=== PATIENT | male | born 1995 | race African-American/Black ===

== ENCOUNTER 2022-12-20 16:37 | Emergency (ER) | payer MEDICAID, SELFPAY ==
[2022-12-20 16:39] VITALS: BP 132/68; PULSE 99; RESP 17; TEMP 36.6; O2SAT 98; BMI 27.0
--- NOTE | 2022-12-20 17:54 | US_ITS ---
INDICATION: RUQ pain, H/O Hep C EXAMINATION: Ultrasound US Abdomen RUQ (limited) TECHNIQUE: Perez-scale and color Doppler imaging was performed of the abdomen. COMPARISON: FINDINGS: LIVER: There is normal echotexture measuring 13.7 cm. No focal hepatic lesion. No intrahepatic biliary ductal dilatation. There is no free fluid. GALLBLADDER AND BILIARY TREE: No shadowing gallstone, pericholecystic fluid or gallbladder wall thickening is demonstrated. The proximal common bile duct measures 2 mm, which is within normal limits for the patient''s age. SONOGRAPHIC DRAKE''S SIGN: Negative. PANCREAS: Limited visualization of the pancreas. RIGHT KIDNEY: 10.7 x 4.5 x 2.9 cm. 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 There is no hydronephrosis. No shadowing calculus, focal lesion, or perinephric collection is demonstrated. VESSELS: Submitted longitudinal images of the intra-abdominal aorta demonstrate no gross abnormalities and are unremarkable. The IVC is patent. US/Abdomen Limited IMPRESSION: No acute sonographic abnormality is demonstrated in the abdomen. Electronically Signed: Benito Lombardi DO at 19:07 EDT Reading Location ID and State: [facility] / [place] Tel [phone], Service support ,
--- NOTE | 2022-12-20 17:54 | EDS_ITS ---
HPI History of Present Illness Chief Complaint: General Illness Informant: patient Narrative Narrative: Patient presents with 2 to 3-day history of right upper quad abdominal pain, nausea, and vomiting. He denies fever or chills. He states about 2 years ago he was diagnosed with hepatitis C when he was in [place] [facility]. They treated him with medication at that time but when he was released he never followed up. He is concerned that his pain and vomiting is secondary to his liver disease. He denies diarrhea. PFSH PFSH Medical History Anxiety Depression Hepatitis C PTSD (post-traumatic stress disorder) Home Medications ondansetron 4 mg disintegrating tablet 4 mg PO Q8H PRN PRN Nausea #10 tabs 12/20/22 [Rx Last Taken Unknown] Allergy/AdvReac Type Severity Reaction Status Date / Time No Known Allergies Allergy Verified 12/20/22 16:39 Family History Father Hypertension Surgical History no surgical history Social History household members: friend(s) current occupational status: employed Smoking Status: Current every day smoker tobacco type: cigarettes ROS ROS ED Constitutional Constitutional ED: Denies chills or fever(s) Eyes Eyes: Denies discharge from eye(s) ENT ENT ED: Denies discharge from eye(s), rhinorrhea or sore throat Cardiovascular Cardiovascular: Denies chest pain or palpitations Respiratory/Chest Respiratory/Chest: Denies cough or dyspnea Gastrointestinal Gastrointestinal: Reports abdominal pain, nausea and vomiting; Denies diarrhea Genitourinary Genitourinary ED: Denies difficulty urinating or dysuria Musculoskeletal Musculoskeletal: Denies back pain or extremity pain Integumentary Denies Abrasions or rash Neurologic Neurologic: Denies headache(s) or weakness Allergic/Immunologic Allergic/Immunologic ED: Denies lip swelling or urticaria EXAM Physical Exam Const Vital Signs: 12/20/22 16:39 12/20/22 17:46 12/20/22 19:16 Temperature 97.9 F Temperature Source Temporal Pulse Rate 99 89 Respiratory Rate 17 15 Respiratory Effort Normal Respiratory Pattern Normal Blood Pressure 132/68 H 114/51 L Blood Pressure Mean 89 72 Pulse Ox 98 97 Oxygen Delivery Method Room Air Room Air Positive well nourished and well developed General Appearance ED: well developed HEENT Reports normocephalic, head/scalp atraumatic and dry mucous membranes Mouth ED: Yes dry mucous membranes Mouth: dry mucous membranes Eyes PERRL and EOMs intact bilaterally Neck supple Chest Wall inspection of chest normal and palpation of chest normal Resp normal respiratory effort and clear to auscultation bilaterally Cardio regular rate and regular rhythm GI GI Narrative: Abdomen soft with right upper quadrant tenderness to palpation. No guarding or rebound. Palpation: soft Extremity normal to inspection Neuro oriented x3 and no sensory deficits noted Sensorium / Orientation: alert Motor Exam: strength 5/5 throughout Psych mental status grossly normal Skin no rashes or lesions noted MDM MDM MDM Narrative Medical decision making narrative: IV line established. Patient given IV fluids and Zofran. Labwork obtained to evaluate for leukocytosis, anemia, electrolyte derangement. LFTs obtained to evaluate liver disease. Right upper quadrant ultrasound obtained given his focal pain to this area and history of hepatitis. History & Record Review Discussion w/independent historian: Patient Lab Data Attestation: I reviewed the patient's lab results. Labs: Laboratory Results - last 24 hr 12/20/22 18:00 WBC 6.9 RBC 5.16 Hgb 16.2 Hct 48.3 MCV 93.6 MCH 31.4 MCHC 33.5 RDW Std Deviation 44.8 H RDW Coeff of Jack 13.0 Plt Count 230 MPV 11.4 Immature Gran % (Auto) 0.300 Neut % (Auto) 51.3 Lymph % (Auto) 32.8 Isabella % (Auto) 14.3 H Eos % (Auto) 0.9 Baso % (Auto) 0.4 Absolute Neuts (auto) 3.5 Absolute Lymphs (auto) 2.25 Nucleated RBC % 0 Sodium 139 Potassium 3.9 Chloride 108 H Carbon Dioxide 28.0 Anion Gap 3 L BUN 8 Creatinine 1.59 H Estim Creat Clear Calc 80.26 Est GFR (MDRD) Af Amer 69 Est GFR (MDRD) Non-Af 57 L BUN/Creatinine Ratio 5.0 L Glucose 82 Calcium 9.1 Total Bilirubin 0.60 Direct Bilirubin 0.21 AST 43 H ALT 91 H Alkaline Phosphatase 90 Total Protein 7.1 Albumin 3.4 Globulin 3.7 Lipase 18 Radiography Diagnostic Testing: Clinical Impression(s) from Imaging Studies Abdomen Ultrasound 12/20/22 17:54 IMPRESSION: No acute sonographic abnormality is demonstrated in the abdomen. Electronically Signed: Benito Lombardi DO at 19:07 EDT , Treatment and Re-Evaluation :: CBC was normal white count with a hemoglobin of 16.2. Normal differential. Chemistry studies reveal creatinine 1.59. I do not have any prior values avail able for comparison. LFTs reveal an AST of 43 and an ALT of 91. Alk phos is normal. Lipase is normal. Right upper quadrant ultrasound reveals no acute sonographic abnormality. On repeat evaluation patient is feeling improved after IV fluids and Zofran. He is encouraged to increase fluid intake and will be given a prescription for Zofran at home. I will refer him to both GI docs in [facility] for follow-up of his hepatitis C. Discharge Plan Triage Chief Complaint: General Illness ED Provider: Kamini Swanson Dx/Rx/DC Orders Clinical Impression: Hepatitis C, Vomiting Instructions: ED Vomiting (Adult) Prescriptions: New ondansetron 4 mg tablet,disintegrating 4 mg PO Q8H PRN PRN (Reason: Nausea) Qty: 10 0RF Primary Care Provider: Care Physician,No Primary Referrals: Ritesh Sarabia DO [Med Staff - Active Staff] - As soon as possible Wali Lauren MD [Non-Staff] - As soon as possible [facility] Doctor,Out of [Non-Staff] - Disposition Disposition: Home, Self Care
[2022-12-20 18:05] LABS: Absolute Lymphocyte Count 2.25 X10^3/uL (0.83-4.51); Absolute Neutrophil Count 3.5 X10^3/uL (2.0-7.7); Basophil# 0.03 X10^3/uL; Basophil% 0.4 % (0-1); Eosinophil# 0.06 X10^3/uL; Eosinophils% 0.9 % (0-5); Hematocrit 48.3 % (40-54); Hemoglobin 16.2 g/dL (13.0-16.5); Lymphocyte # 2.25 X10^3/ul (0.83-4.51); Lymphocyte % 32.8 % (19-41); Mean Corp Hgb Conc 33.5 g/dL (32-36); Mean Corpuscular Hgb 31.4 pg (27.0-32.0); Mean Corpuscular Volume 93.6 fL (80-94); Mean Platelet Vol. 11.4 fl (6.2-12.0); Monocyte# 0.98 X10^3/uL; Monocyte% 14.3 % (0-10); NRBC Flagged by Analyzer 0 % (0-5); Neutrophil # 3.51 X10^3/uL (2.7-7.7); Neutrophil % 51.3 % (47-70); Platelet Count 230 K/mm3 (150-450); RBC Distribution Width SD 44.8 fl (35.1-43.9); Red Blood Count 5.16 M/mm3 (4.6-6.2); White Blood Count 6.9 K/mm3 (4.4-11.0)
[2022-12-20] MEDS: 0.9% Normal Saline (1000mL) 1,000 ML 1000 ML IV (18:05)
[2022-12-20] MEDS: Ondansetron 4 MG/2 ML Vial IV (18:05)
[2022-12-20 18:24] LABS: AST(SGOT) 43 U/L (15-37); Alanine Aminotransfer ALT/SGPT 91 U/L (16-61); Albumin, Serum 3.4 g/dL (3.2-5.0); Alkaline Phosphatase 90 U/L (45-117); Anion Gap 3 (5-15); BUN 8 mg/dL (7-18); Bilirubin, Direct 0.21 mg/dL (0.00-0.30); Calcium,Total 9.1 mg/dL (8.5-10.1); Chloride 108 mmol/L (98-107); Creatinine, Serum 1.59 mg/dL (0.70-1.30); EST Glomerular Filtration Rate 57 mL/min (>60); Est Glom Filt Rate - Afr Amer 69 mL/min (>60); Estimated Creatinine Clearance 80.26 ml/min; Globulin 3.7 g/dL (2.2-4.2); Glucose 82 mg/dL (74-106); Lipase 18 U/L (13-75); Potassium 3.9 mmol/L (3.5-5.1); Protein, Total 7.1 g/dL (6.4-8.2); Sodium Level 139 mmol/L (136-145)
[2022-12-20 19:16] VITALS: BP 114/51; PULSE 89; RESP 15; O2SAT 97
== END 2022-12-20 20:25 | disposition home or self-care (01) ==
PROVIDERS: Emergency Provider Emergency Medicine; Visit Provider Emergency Medicine
DX: R11.10 Vomiting, unspecified (principal); F17.210 Nicotine dependence, cigarettes, uncomplicated; B19.20 Unspecified viral hepatitis C without hepatic coma
CPT/HCPCS: 76705; 80048; 80076; 83690; 85025; 96361; 96374; 99283; J7030; A4216; J2405

== ENCOUNTER 2025-01-12 10:15 | Observation (INO) | payer MEDICAID, SELFPAY ==
[2025-01-12] VITALS (8 sets, daily range): BP systolic 128–147; BP diastolic 74–87; PULSE 68–91; RESP 16–18; TEMP 36.5–36.6; O2SAT 95–100; BMI 29.2; BMI 28.8
--- NOTE | 2025-01-12 10:20 | ED.RN ---
[address] CONTACTS Marleny [phone], ANAHI [phone]
--- NOTE | 2025-01-12 11:13 | EDS_ITS ---
HPI History of Present Illness Chief Complaint: Substance Abuse Informant: patient Narrative Narrative: 29-year-old male presenting to the emergency room with a chief complaint of requesting detox from alcohol. Patient states that his space operations officer that is mandating that he go into residential treatment. He states that [address] advised that he needed to come to the hospital for detox from alcohol. He states that he regularly drinks at least 3 twisted teas throughout the day. He utilizes cannabis and recreational cocaine. States he last drank yesterday. States that he feels okay today. Has not been experience any diarrhea. Denies any IV drug use. No vomiting. PFSH FOR[facility]LY [facility], 1928–1983 Medical History Smoker Migraines Depression Anxiety PTSD (post-traumatic stress disorder) Hepatitis C Home Medications Medication Instructions Recorded Last Taken Type ondansetron 4 mg disintegrating 4 mg PO Q8H PRN PRN Na usea #10 tabs 12/20/22 Unknown Rx tablet Allergy/AdvReac Type Severity Reaction Status Date / Time No Known Allergies Allergy Verified 01/12/25 10:17 Family History Father Hypertension Social History household members: friend(s) current occupational status: employed Smoking Status: Current every day smoker tobacco type: cigarettes ROS ROS ED Constitutional Constitutional ED: Denies chills or weight loss Eyes Eyes: Denies change in vision or diplopia ENT ENT ED: Denies ear pain, rhinorrhea or sore throat Cardiovascular Cardiovascular: Denies chest pain, orthopnea, palpitations or racing heartbeat Respiratory/Chest Respiratory/Chest: Denies cough, dyspnea or orthopnea Gastrointestinal Gastrointestinal: Denies abdominal pain, diarrhea, nausea or vomiting Genitourinary Genitourinary ED: Denies dysuria, hematuria or urinary frequency Musculoskeletal Musculoskeletal: Denies arthralgias or myalgias Integumentary Denies abscess or rash Neurologic Neurologic: Denies headache(s) or weakness Psychiatric Psychiatric: Denies anxiety, depression, suicidal ideation or suicidal thoughts Endocrine Endocrinology: Denies polydipsia, polyphagia or polyuria Allergic/Immunologic Allergic/Immunologic ED: Denies mouth swelling, tongue swelling or urticaria EXAM Physical Exam Const Vital Signs: 01/12/25 10:17 Temperature 97.9 F Temperature Source Oral Pulse Rate 91 Respiratory Rate 16 Blood Pressure 143/74 H Blood Pressure Mean 97 Pulse Ox 98 Oxygen Delivery Method Room Air Positive well nourished and well developed General Appearance ED: well developed HEENT Reports normocephalic, head/scalp atraumatic and moist mucous membranes Eyes PERRL and EOMs intact bilaterally Neck no lymphadenopathy, supple and no JVD Resp normal respiratory effort and clear to auscultation bilaterally Cardio regular rate, regular rhythm and no murmurs GI normal to inspection, nondistended, normoactive bowel sounds and non-tender Palpation: soft Back/Spine no CVA tenderness and normal ROM Extremity normal to inspection General Extremety ED: Negative for edema General Extremity: Negative for edema Neuro oriented x3 and CN's II-XII intact bilaterally Sensorium / Orientation: alert Motor Exam: strength 5/5 throughout Psych mental status grossly normal Mood & Affect: Negative for depressed or tearful Skin no rashes or lesions noted and no wounds Discharge Plan Triage Chief Complaint: Substance Abuse ED Provider: Sidney Veloz Dx/Rx/DC Orders Prescriptions: No Action ondansetron 4 mg tablet,disintegrating 4 mg PO Q8H PRN PRN (Reason: Nausea) Qty: 10 0RF Primary Care Provider: Care Physician,No Primary Referrals: Care Physician,No Primary [Primary Care Provider, Medical] Print Language: Estonian
--- NOTE | 2025-01-12 11:13 | EX.ED.SAOD ---
HPI History of Present Illness Chief Complaint: Substance Abuse Informant: patient Narrative Narrative: 29-year-old male presenting to the emergency room with a chief complaint of requesting detox from alcohol. Patient states that his traffic control officer that is mandating that he go into residential treatment. He states that 180 advised that he needed to come to the hospital for detox from alcohol. He states that he regularly drinks at least 3 twisted teas throughout the day. He utilizes cannabis and recreational cocaine. States he last drank yesterday. States that he feels okay today. Has not been experience any diarrhea. Denies any IV drug use. No vomiting. [facility] Medical History Smoker Migraines Depression Anxiety PTSD (post-traumatic stress disorder) Hepatitis C Home Medications Medication Instructions Recorded Last Taken Type NK 01/12/25 Unknown History Allergy/AdvReac Type Severity Reaction Status Date / Time No Known Allergies Allergy Verified 01/12/25 10:17 Family History Father Hypertension Social History household members: friend(s) current occupational status: employed Smoking Status: Current every day smoker tobacco type: cigarettes ROS ROS ED Constitutional Constitutional ED: Denies chills or weight loss Eyes Eyes: Denies change in vision or diplopia ENT ENT ED: Denies ear pain, rhinorrhea or sore throat Cardiovascular Cardiovascular: Denies chest pain, orthopnea, palpitations or racing heartbeat Respiratory/Chest Respiratory/Chest: Denies cough, dyspnea or orthopnea Gastrointestinal Gastrointestinal: Denies abdominal pain, diarrhea, nausea or vomiting Genitourinary Genitourinary ED: Denies dysuria, hematuria or urinary frequency Musculoskeletal Musculoskeletal: Denies arthralgias or myalgias Integumentary Denies abscess or rash Neurologic Neurologic: Denies headache(s) or weakness Psychiatric Psychiatric: Denies anxiety, depression, suicidal ideation or suicidal thoughts Endocrine Endocrinology: Denies polydipsia, polyphagia or polyuria Allergic/Immunologic Allergic/Immunologic ED: Denies mouth swelling, tongue swelling or urticaria EXAM Physical Exam Const Vital Signs: 01/12/25 10:17 01/12/25 12:16 Temperature 97.9 F Temperature Source Oral Pulse Rate 91 Respiratory Rate 16 Blood Pressure 143/74 H 135/81 H Blood Pressure Mean 97 99 Pulse Ox 98 98 Oxygen Delivery Method Room Air Room Air Positive well nourished and well developed General Appearance ED: well developed HEENT Reports normocephalic, head/scalp atraumatic and moist mucous membranes Eyes PERRL and EOMs intact bilaterally Neck no lymphadenopathy, supple and no JVD Resp normal respiratory effort and clear to auscultation bilaterally Cardio regular rate, regular rhythm and no murmurs GI normal to inspection, nondistended, normoactive bowel sounds and non-tender Palpation: soft Back/Spine no CVA tenderness and normal ROM Extremity normal to inspection General Extremety ED: Negative for edema General Extremity: Negative for edema Neuro oriented x3 and CN's II-XII intact bilaterally Sensorium / Orientation: alert Motor Exam: strength 5/5 throughout Psych mental status grossly normal Mood & Affect: Negative for depressed or tearful Skin no rashes or lesions noted and no wounds MDM MDM MDM Narrative Medical decision making narrative: Differential diagnosis includes but not limited to polysubstance use electrolyte abnormalities liver dysfunction KOURTNEY bone marrow suppression ED addiction labs were ordered and reviewed. AST of 76 ALT of 109 toxicology is presumptive positive for cocaine and cannabinoids. Alcohol level is negative. I will speak with the hospitalist regarding admission History & Record Review Discussion w/independent historian: Patient Lab Data Attestation: I reviewed the patient's lab results. Labs: Laboratory Results - last 24 hr 01/12/25 01/12/25 11:25 11:45 WBC 6.0 RBC 5.53 Hgb 17.7 H Hct 50.6 MCV 91.5 MCH 32.0 MCHC 35.0 RDW Std Deviation 43.8 RDW Coeff of Jack 12.9 Plt Count 203 MPV 12.0 Immature Gran % (Auto) 0.200 Neut % (Auto) 50.9 Lymph % (Auto) 32.3 [place] % (Auto) 15.1 H Eos % (Auto) 0.8 Baso % (Auto) 0.7 Absolute Neuts (auto) 3.1 Absolute Lymphs (auto) 1.95 Nucleated RBC % 0 Sodium 139 Potassium 3.9 Chloride 99 Carbon Dioxide 29.5 Anion Gap 10 BUN 12 Creatinine 1.71 H Estim Creat Clear Calc 80.97 Est GFR (MDRD) Non-Af 56 L BUN/Creatinine Ratio 7.0 L Glucose 96 Calcium 9.9 Total Bilirubin 0.76 AST 76 H ALT 109 H Alkaline Phosphatase 112 Total Protein 7.3 Albumin 4.2 Globulin 3.1 Albumin/Globulin Ratio 1.4 Urine Opiates Screen NEGATIVE U Buprenorphine Qual NEGATIVE Ur Oxycodone Screen NEGATIVE Urine Methadone Screen NEGATIVE Urine Fentanyl Screen NEGATIVE Ur Barbiturates Screen NEGATIVE Ur Phencyclidine Scrn NEGATIVE Ur Amphetamines Screen NEGATIVE U Benzodiazepines Scrn NEGATIVE Urine Cocaine Screen PRESUMPTIVE POSITIVE U Cannabinoids Screen PRESUMPTIVE POSITIVE Ethyl Alcohol < 10.1 Management Discussion w/another healthcare provider: Hospitalist (Dr. Elizabeth) Discharge Plan Dx/Rx/DC Orders Clinical Impression: Alcohol abuse, Cocaine abuse Disposition Disposition: Acute Care Hospital [facility]
[2025-01-12 11:31] LABS: Hematocrit 50.6 % (40-54); Hemoglobin 17.7 g/dL (13.0-16.5); Immature Granulocytes Count 0.010 X10^3/uL (0.0-0.0); Mean Corp Hgb Conc 35.0 g/dL (32-36); Mean Corpuscular Volume 91.5 fL (80-94); Mean Platelet Vol. 12.0 fl (6.2-12.0); NRBC Flagged by Analyzer 0 % (0-5); Platelet Count 203 K/mm3 (150-450); RBC Distribution Width CV 12.9 % (11.6-14.6); RBC Distribution Width SD 43.8 fl (35.1-43.9); Red Blood Count 5.53 M/mm3 (4.6-6.2); White Blood Count 6.0 K/mm3 (4.4-11.0)
[2025-01-12 11:55] LABS: Alcohol, Blood (Medical)-Serum < 10.1 mg/dL (<=10.0)
[2025-01-12 11:56] LABS: Prothrombin Time (Protime)PT. 12.8 SECONDS (11.7-14.9)
[2025-01-12 12:11] LABS: AST(SGOT) 76 U/L (<=37); Alanine Aminotransfer ALT/SGPT 109 U/L (<=46); Albumin, Serum 4.2 g/dL (3.5-5.0); Alkaline Phosphatase 112 U/L (40-129); Anion Gap 10 (5-15); BUN 12 mg/dL (4-19); BUN/Creat Ratio 7.0 RATIO (10-20); Calcium,Total 9.9 mg/dL (7.6-11.0); Carbon Dioxide 29.5 mmol/L (21.0-32.0); Chloride 99 mmol/L (98-108); Estimated Creatinine Clearance 80.97 ml/min (50-250); Globulin 3.1 g/dL (2.2-4.2); Glucose 96 mg/dL (70-99); Potassium 3.9 mmol/L (3.3-5.1)
[2025-01-12 12:46] LABS: Barbiturate Urine NEGATIVE (< 200 ng/mL); Benzodiazepine Urine NEGATIVE (< 200 ng/mL); PCP Urine NEGATIVE (< 25 ng/mL); THC Urine PRESUMPTIVE POSITIVE (< 50 ng/mL)
--- NOTE | 2025-01-12 13:56 | HP.PCM.HOS_ITS ---
HPI - General General Date of Admission: 01/12/25 Date of Service: 01/12/25 Chief Complaint: Alcohol detox HPI Narrative VERONIQUE MCKEON, is a 29 M with a history of alcohol abuse, cocaine abuse, hepatitis C, tobacco use who presented [facility] ED 01/12/2025 for placement for residential treatment and alcohol detox. Reportedly patient drinks around 3 tall boys a day and at times goes days without drinking without withdrawal symptoms however light armored vehicle officer sent him here for alcohol detox and residential placement. Patient also uses cocaine which he says is occasional and cannabis. Uses tobacco products as well. In the ED patient vitally stable. Creatinine 1.71 up slightly from 1.59 2 years ago. AST 76 and ALT 109. Hospitalist contacted for admission. Patient evaluated at bedside reports history as above. Last drink yesterday. No acute complaints [facility] Medical History Smoker Migraines Depression Anxiety PTSD (post-traumatic stress disorder) Hepatitis C Home Medications Medication Instructions Recorded Last Taken Type NK 01/12/25 Unknown History Allergy/AdvReac Type Severity Reaction Status Date / Time No Known Allergies Allergy Verified 01/12/25 10:17 Family History Father Hypertension Social History household members: friend(s) current occupational status: employed Smoking Status: Current every day smoker tobacco type: cigarettes ROS ROS Narrative General: Denies fever/chills HENT: Denies headache, denies stuffy nose, denies sore throat EYES: Denies changes in vision Resp: Denies cough, denies shortness of breath Cardiac: Denies chest pain GI: Denies abdominal pain, denies changes in bowel, denies nausea/vomiting : Denies changes in urination Extremity: Denies swelling MSK: Denies weakness Neuro: Denies any numbness/tingling Heme: Denies any bleeding or bruising Skin: Denies rashes Psychiatric: No complaints voiced Vital Signs Vital Signs Vital Signs: 01/12/25 10:17 01/12/25 12:16 01/12/25 13:00 Temperature 97.9 F Temperature Source Oral Pulse Rate 91 81 Respiratory Rate 16 18 Blood Pressure 143/74 H 135/81 H 137/82 H Blood Pressure Mean 97 99 100 Pulse Ox 98 98 100 Oxygen Delivery Method Room Air Room Air Room Air 01/12/25 13:16 Temperature 97.8 F Temperature Source Pulse Rate 82 Respiratory Rate 18 Blood Pressure 147/78 H Blood Pressure Mean 101 Pulse Ox 99 Oxygen Delivery Method Weight Weight: 100.698 kg Body Mass Index (BMI) 29.2 Physical Exam Narrative General: Resting, wakes up after multiple prompts and then answers questions appropriately HEENT: Atraumatic, normocephalic Eyes: Some scleral injection bilaterally Neck: Supple Respiratory: Clear to auscultation bilaterally, normal respiratory effort Cardiovascular: Regular rate and rhythm GI: Soft, nontender, nondistended Extremities: No edema Musculoskeletal: Moving all extremities Neuro: No overt focal neurological deficits Skin: No rashes appreciated Psych: Minimally interactive but not uncooperative Results Lab / Micro Data 01/12/25 11:25 01/12/25 11:25 Labs: Laboratory Results - last 24 hr 01/12/25 11:25: WBC 6.0, RBC 5.53, Hgb 17.7 H, Hct 50.6, MCV 91.5, MCH 32.0, MCHC 35.0, RDW Std Deviation 43.8, RDW Coeff of Jack 12.9, Plt Count 203, MPV 12.0, Immature Gran % (Auto) 0.200, Neut % (Auto) 50.9, Lymph % (Auto) 32.3, M grace % (Auto) 15.1 H, Eos % (Auto) 0.8, Baso % (Auto) 0.7, Absolute Neuts (auto) 3.1, Absolute Lymphs (auto) 1.95, Nucleated RBC % 0, PT 12.8, INR 0.9, Sodium 139, Potassium 3.9, Chloride 99, Carbon Dioxide 29.5, Anion Gap 10, BUN 12, C reatinine 1.71 H, Estim Creat Clear Calc 80.97, Est GFR (MDRD) Non-Af 56 L, B UN/Creatinine Ratio 7.0 L, Glucose 96, Calcium 9.9, Total Bilirubin 0.76, AST 76 H, ALT 109 H, Alkaline Phosphatase 112, Total Protein 7.3, Albumin 4.2, Globulin 3.1, Albumin/Globulin Ratio 1.4, Ethyl Alcohol < 10.1 01/12/25 11:45: Urine Opiates Screen NEGATIVE, U Buprenorphine Qual NEGATIVE, Ur Oxycodone Screen NEGATIVE, Urine Methadone Screen NEGATIVE, Urine Fentanyl Screen NEGATIVE, Ur Barbiturates Screen NEGATIVE, Ur Phencyclidine Scrn NEGATIVE, Ur Amphetamines Screen NEGATIVE, U Benzodiazepines Scrn NEGATIVE, Urine Cocaine Screen PRESUMPTIVE POSITIVE, U Cannabinoids Screen PRESUMPTIVE POSITIVE Assessment & Plan Assessment/Plan (1) Alcohol abuse: (2) Cocaine abuse: PLAN: Plan #Alcohol use disorder - We will begin CIWA every 4 for 24 hours, then every 6 for 24 hours, then every 12 until discharge - Patient drinks several tall boys a day and will go days without drinking, coming in primarily so we can be placed in a residential treatment. Will start CIWA with as needed coverage, do not certainly think he needs a full phenobarb taper. If he begins to have high scores can start taper but lower suspicion for this -Gabapentin 300 mg every 8 as needed -Will start Bentyl and hydroxyzine as needed as well as loperamide as needed -Trazodone 100 mg p.o. nightly as needed sleep -Begin thiamine and folic acid supplementation -Zofran as needed for nausea -Case management consult to assist with discharge planning -EtOH 0 -UDS cocaine and cannabis # Cocaine use disorder - Advise cessation # Elevated creatinine - 1.79, slightly up from 1.53 previous - Encourage hydration - Can consider monitoring on an outpatient basis and further workup if needed - Repeat in the a.m. # Slight elevation of liver function test - 76 AST and 109 ALT, minimally elevated - Denying abdominal pain - Reportedly has history of hep C, would benefit from outpatient follow-up #Tobacco use -Advise cessation -Nicotine replacement available if desired, in the ED denied #DVT ppx: Low risk, ambulatory Giulia Elizabeth MD Charges/Coding Visit Charges Inpatient E&M: 74316 Init Hosp L2
--- NOTE | 2025-01-12 18:52 | CM.ED ---
Social Work Patient was brought to ED for detox from alcohol. Treatment navigator notified of admission to [facility]. Balbina Gallegos, DISBURSING AGENT, BALANCE TRUING INSPECTOR
[2025-01-13 02:30] VITALS: BP 95/63; PULSE 65; RESP 18; TEMP 36.7; O2SAT 95
[2025-01-13 05:04] VITALS: BP 132/75; PULSE 84; RESP 18; TEMP 36.6; O2SAT 97
[2025-01-13 05:43] LABS: AST(SGOT) 81 U/L (<=37); Alanine Aminotransfer ALT/SGPT 109 U/L (<=46); Albumin, Serum 3.8 g/dL (3.5-5.0); Alkaline Phosphatase 111 U/L (40-129); Anion Gap 10 (5-15); BUN 11 mg/dL (4-19); BUN/Creat Ratio 7.7 RATIO (10-20); Calcium,Total 8.9 mg/dL (7.6-11.0); Carbon Dioxide 24.5 mmol/L (21.0-32.0); Chloride 102 mmol/L (98-108); Estimated Creatinine Clearance 94.10 ml/min (50-250); Globulin 2.8 g/dL (2.2-4.2); Glucose 92 mg/dL (70-99); Potassium 4.1 mmol/L (3.3-5.1)
[2025-01-13 08:00] VITALS: O2SAT 95
[2025-01-13] MEDS: Thiamine Hydrochloride 100 MG Tablet PO (08:22)
[2025-01-13 08:23] VITALS: BP 134/90; PULSE 80; RESP 18; TEMP 36.6; O2SAT 95
--- NOTE | 2025-01-13 10:18 | DCINST_ITS ---
Discharge Instructions DC O2, CPAP, BIPAP needs Home O2 Discharge instructions: No Dressing / Incision Discharge Activity: Return to Normal Activity Follow Up Care Test Results: Test results from this visit will be discussed in further detail at your follow- up appointment, if applicable. Discharge Plan Admission Admit Date/Time: 01/12/25 13:57 Primary Reason for Your Visit: Alcohol use Attending Provider: Giulia Elizabeth Primary Care Provider: Care Physician,No Primary Discharge Orders/Prescriptions Prescriptions: New trazodone 100 mg Tablet 100 mg PO QHS PRN (Reason: Insomnia) 30 Days Qty: 30 0RF Referrals / Follow Up: Care Physician,No Primary [Primary Care Provider, Medical] Disposition Disposition (needs filled in before D/C Order can be placed): Inpt Substance Use Treatment
--- NOTE | 2025-01-13 10:20 | PCM.DC.SUM ---
Providers Date of Admission: 01/12/25 Date of Discharge: 01/13/25 Primary Care Physician: No Primary Care Phys Reason For Visit: ALCOHOL DETOX Diagnosis Discharge Diagnosis (1) Alcohol abuse: Status: Acute Code(s): F10.10 - Alcohol abuse, uncomplicated (2) Cocaine abuse: Status: Acute Code(s): F14.10 - Cocaine abuse, uncomplicated Plan #Alcohol use disorder # Cocaine use disorder # Elevated creatinine # Slight elevation of liver function test #Tobacco use #Hx hep C Medications at Discharge Home Medications trazodone 100 mg tablet 100 mg PO QHS PRN Insomnia 30 days #30 tabs 01/13/25 Hospital Course Summary of Care Provided Minutes Spent on Discharge: 15 Hospital Course: Per HPI: "VERONIQUE MCKEON, is a 29 M with a history of alcohol abuse, cocaine abuse, hepatitis C, tobacco use who presented [facility] ED 01/12/2025 for placement for residential treatment and alcohol detox. Reportedly patient drinks around 3 tall boys a day and at times goes days without drinking without withdrawal symptoms however staff antisubmarine officer sent him here for alcohol detox and residential placement. Patient also uses cocaine which he says is occasional and cannabis. Uses tobacco products as well. In the ED patient vitally stable. Creatinine 1.71 up slightly from 1.59 2 years ago. AST 76 and ALT 109. Hospitalist contacted for admission. Patient evaluated at bedside reports history as above. Last drink yesterday. No acute complaints" Interval history: Pt did not exhibit any type of withdrawal symptoms from alcohol and did not require any ativan or phenobarbital. Pt cleared to go to his treatment program as previously planned Physical Exam Narrative General: Alert, oriented, no apparent distress HEENT: Atraumatic, normocephalic Eyes: extraocular movements grossly intact Neck: Supple Respiratory: normal respiratory effort Cardiovascular: no edema appreciated GI: nondistended Extremities: Moving all extremities Neuro: No overt focal neurological deficits Psych: Cooperative Weight / BMI Weight Weight: 99 kg Body Mass Index (BMI) 28.8 ABG / Lab / Microbiology Data 01/12/25 11:25 01/13/25 05:00 Laboratory: Laboratory Results - last 24 hr 01/12/25 11:25: WBC 6.0, RBC 5.53, Hgb 17.7 H, Hct 50.6, MCV 91.5, MCH 32.0, MCHC 35.0, RDW Std Deviation 43.8, RDW Coeff of Jack 12.9, Plt Count 203, MPV 12.0, Immature Gran % (Auto) 0.200, Neut % (Auto) 50.9, Lymph % (Auto) 32.3, [place] % (Auto) 15.1 H, Eos % (Auto) 0.8, Baso % (Auto) 0.7, Absolute Neuts (auto) 3.1, Absolute Lymphs (auto) 1.95, Nucleated RBC % 0, PT 12.8, INR 0.9, Sodium 139, Potassium 3.9, Chloride 99, Carbon Dioxide 29.5, Anion Gap 10, BUN 12, Creatinine 1.71 H, Estim Creat Clear Calc 80.97, Est GFR (MDRD) Non-Af 56 L, BUN/Creatinine Ratio 7.0 L, Glucose 96, Calcium 9.9, Total Bilirubin 0.76, AST 76 H, ALT 109 H, Alkaline Phosphatase 112, Total Protein 7.3, Albumin 4.2, Globulin 3.1, Albumin/Globulin Ratio 1.4, Ethyl Alcohol < 10.1 01/12/25 11:45: Urine Opiates Screen NEGATIVE, U Buprenorphine Qual NEGATIVE, Ur Oxycodone Screen NEGATIVE, Urine Methadone Screen NEGATIVE, Urine Fentanyl Screen NEGATIVE, Ur Barbiturates Screen NEGATIVE, Ur Phencyclidine Scrn NEGATIVE, Ur Amphetamines Screen NEGATIVE, U Benzodiazepines Scrn NEGATIVE, Urine Cocaine Screen PRESUMPTIVE POSITIVE, U Cannabinoids Screen PRESUMPTIVE POSITIVE 01/13/25 05:00: Sodium 137, Potassium 4.1, Chloride 102, Carbon Dioxide 24.5, Anion Gap 10, BUN 11, Creatinine 1.46 H, Estim Creat Clear Calc 94.10, Est GFR (MDRD) Non-Af 67, BUN/Creatinine Ratio 7.7 L, Glucose 92, Calcium 8.9, Total Bilirubin 0.70, AST 81 H, ALT 109 H, Alkaline Phosphatase 111, Total Protein 6.6, Albumin 3.8, Globulin 2.8, Albumin/Globulin Ratio 1.4 D/C Instructions DC O2, CPAP, BIPAP Needs Home O2 Discharge instructions: No Meaningful Use Info Meaningful Use Meaningful Use Diagnoses (Choose all that apply): None applicable Discharge Plan Admission Admit Date/Time: 01/12/25 13:57 Primary Reason for Your Visit: Alcohol use Attending Provider: Giulia Elizabeth Primary Care Provider: Care Physician,No Primary Discharge Orders/Prescriptions Prescriptions: New trazodone 100 mg Tablet 100 mg PO QHS PRN (Reason: Insomnia) 30 Days Qty: 30 0RF Referrals / Follow Up: Care Physician,No Primary [Primary Care Provider, Medical] Disposition Disposition (needs filled in before D/C Order can be placed): Inpt Substance Use Treatment Charges/Coding Visit Charges Inpatient E&M: 25363 Disch Hosp
--- NOTE | 2025-01-13 10:27 | ADDICTION ---
Met w/pt to complete RAMP assessments. [facility] due to a positive UDS at admission to residential tx. Pt was observed and has no signs of w/d's. He will be discharged today and will return to [facility] inpatient tx.
[2025-01-13 10:48] VITALS: BP 150/98; PULSE 89; RESP 18; TEMP 36.4; O2SAT 100
== END 2025-01-13 11:05 ==
LOC: ED 13:11 → ICU 14:11
PROVIDERS: Admitting Provider Internal Medicine; Emergency Provider Emergency Medicine; Visit Provider Internal Medicine
DX: F10.10 Alcohol abuse, uncomplicated (principal); F14.10 Cocaine abuse, uncomplicated; F17.210 Nicotine dependence, cigarettes, uncomplicated; R79.89 Other specified abnormal findings of blood chemistry; R74.8 Abnormal levels of other serum enzymes; R74.01 Elevation of levels of liver transaminase levels; Z86.19 Personal history of other infectious and parasitic diseases
CPT/HCPCS: 80053; 80307; 82077; 85025; 85610; 99221; 99284; A4216; G0378